=== PATIENT | female | born 1940 | race Caucasian/White ===

== ENCOUNTER 2016-12-13 15:11 | Emergency (ER) | payer OTHER ==
[~2016-12-13] VITALS: Ht 165.1 cm; Wt 68.9 kg
[~2016-12-13 15:11] MED LIST: COL100UDC PO; KPHOS PO; PRILOSEC20 MG PO; TYLENOL EXTRA500 M2 PO; VESICARE5 M1 PO
[2016-12-13 16:31] LABS: microscopic required? YES; urine erythrocyte TRACE (NEGATIVE)
[2016-12-13 18:38] VITALS: BP 136/73
== END 2016-12-13 18:38 | disposition home or self-care (01) ==
LOC: ED 15:11
PROVIDERS: Emergency Medicine
DX: R50.9 Fever, unspecified (principal); R10.9 Unspecified abdominal pain; M19.90 Unspecified osteoarthritis, unspecified site; Z88.2 Allergy status to sulfonamides; Z88.8 Allergy status to other drugs, medicaments and biological substances; Z79.899 Other long term (current) drug therapy
CPT/HCPCS: J0696